=== PATIENT | male | born 1960 ===

== ENCOUNTER 2019-11-10 15:00 | Emergency (ER) | payer SELFPAY ==
[2019-11-10] MEDS ORDERED: Ketorolac Tromethamine 30 MG/ML VIAL ONE (15:42)
--- NOTE | 2019-11-10 16:03 | RAD ---
Exam:Right elbow 2 views HISTORY: Pain x2 days. Swelling and stiffness. Arthritis. COMPARISON: None FINDINGS: There does appear to be a small joint effusion. No fracture, cortical irregularity or perio steal reaction IMPRESSION: Nonspecific joint effusion. Correlate clinically. Concern for fracture, follow-up imaging in 7-10 days.
== END 2019-11-10 17:06 | disposition home or self-care (01) ==
LOC: ERS 15:00
DX: L03.114 Cellulitis of left upper limb (principal); M25.421 Effusion, right elbow; J18.9 Pneumonia, unspecified organism; M06.9 Rheumatoid arthritis, unspecified; M19.90 Unspecified osteoarthritis, unspecified site; J44.9 Chronic obstructive pulmonary disease, unspecified; B19.20 Unspecified viral hepatitis C without hepatic coma; E03.9 Hypothyroidism, unspecified; Z87.891 Personal history of nicotine dependence; Z79.899 Other long term (current) drug therapy
CPT/HCPCS: 96372; J1885